=== PATIENT | female | born 1935 | race Caucasian/White ===

== ENCOUNTER → 2021-01-25 | Outpatient (CLI) | payer OTHER | END | disposition home or self-care (01) | LOC: RAH 11:25 | PROVIDERS: ATTEND Student in an Organized Health Care Education/Training Program | DX: D17.5 Benign lipomatous neoplasm of intra-abdominal organs (principal); K43.9 Ventral hernia without obstruction or gangrene | CPT/HCPCS: 76705 ==

== ENCOUNTER → 2022-02-11 | Outpatient (CLI) | payer OTHER ==
[~2022-02-11] MED LIST: KETOROLAC 30MG VIAL (30MG/ML) ONE
== END ==
LOC: RAH 10:00
PROVIDERS: ATTEND Internal Medicine
DX: R19.00 Intra-abdominal and pelvic swelling, mass and lump, unspecified site (principal); K43.9 Ventral hernia without obstruction or gangrene
CPT/HCPCS: 76705

== ENCOUNTER 2022-11-07 06:41 | Observation (INO) | payer OTHER, MEDICARE ==
[2022-10-31 11:13] LABS: BASOPHILS % (AUTO) 0.4 % (0.0-5.0); EOSINOPHILS % (AUTO) 2.2 % (0.0-8.0); HEMATOCRIT 41.7 % (36-48); MEAN CORPUSCULAR HEMOGLOBIN 28.1 pg (27.0-33.0); MEAN CORPUSCULAR HGB CONC 31.7 g/dL (32.0-36.0); MEAN CORPUSCULAR VOLUME 88.7 fL (79-99); MONOCYTES % (AUTO) 8.1 % (3.0-13.0); PLATELET COUNT (AUTO) 219 K/uL (130-400); RED CELL DISTRIBUTION WIDTH 13.2 % (11.0-15.5); WHITE BLOOD COUNT (AUTO) 6.8 K/uL (4.8-10.8)
[2022-10-31 11:22] LABS: CREATININE 0.9 mg/dL (0.5-1.5); POTASSIUM 4.4 mmol/L (3.5-5.1)
[2022-11-06 09:02] VITALS: BP 188/72
[~2022-11-07] VITALS: Ht 154.9 cm; Wt 70.3 kg
[2022-11-07] VITALS (39 sets, daily range): BP systolic 92–164; BP diastolic 34–86
[~2022-11-07 06:41] MED LIST changes: +AEC81 PO; +AMLO-257 PO; +CALC-261 PO; +CEFAZOLIN SODIUM 2 GM VIAL IVPB SCH; +CRANBERRY PO; +GLIM1TAB18 PO; -KETOROLAC 30MG VIAL (30MG/ML) ONE; +L.AC1CAP6 PO; +LOSA25TA41 PO; +METO25TA6 PO; +MV W1TAB4 PO; +OMEP20CA12 PO; +PRAV40TA3 PO; +PROPOFOL 10 MG/ML 20ML VIAL IV ONE; +VITAMIN D3 PO
[2022-11-07] MEDS ORDERED: 0.9%NACL 1000ML 1,000 ML IV ONE (07:15)
[2022-11-07] MEDS ORDERED: LIDOCAINE PF 100MG/5ML (2%) SYRINGE 5ML ONE (07:38)
[2022-11-07] MEDS ORDERED: MIDAZOLAM HCL 1 MG/ML 2ML VIAL ONE (07:39)
[2022-11-07] MEDS ORDERED: ROCURONIUM 10MG/1ML SYR 10 MG/ML ML ONE (07:39)
[2022-11-07] MEDS ORDERED: PROPOFOL 10 MG/ML 20ML VIAL IV ONE (07:39)
[2022-11-07] MEDS ORDERED: FENTANYL CITRATE PF 50 MCG/1 ML 2ML VIAL ONE ×2 (07:40→12:03)
[2022-11-07] MEDS ORDERED: HYDRALAZINE 20MG/ML VIAL ONE (09:30)
[2022-11-07] MEDS ORDERED: DEXAMETHASONE SOD PHOSPHATE 4 MG/ML 1ML VIAL ONE ×3 (10:03→10:09)
[2022-11-07] MEDS ORDERED: ONDANSETRON 4MG INJ ONE ×2 (10:04→12:20)
[2022-11-07] MEDS ORDERED: ROPIVACAINE 0.5% 5MG/ML 30ML IJ ONE (10:09)
[2022-11-07] MEDS ORDERED: NEOSTIGMINE 5MG/5ML SYR IV ONE (11:23)
[2022-11-07] MEDS ORDERED: GLYCOPYRROLATE 1 MG/5 ML SYRINGE ONE (11:23)
[2022-11-07] MEDS ORDERED: PROMETHAZINE HCL 25 MG/ML 1ML AMPULE IM ONE (12:48)
[2022-11-07] MEDS ORDERED: KETOROLAC 30MG VIAL (30MG/ML) ONE (13:45)
[2022-11-07] MEDS ORDERED: MORPHINE 2 MG SYG ONE (14:50)
[2022-11-07] MEDS ORDERED: IBUPROFEN 400 MG TABLET PO PRN (20:00)
[2022-11-07] MEDS ORDERED: ONDANSETRON 4MG INJ IVP PRN (20:30)
[2022-11-07] MEDS ORDERED: DEXTROSE 5 % AND 0.9 % NACL 1,000 ML IV SCH (20:30)
[2022-11-07] MEDS ORDERED: ASPIRIN 81 MG EC TAB PO SCH (21:00)
[2022-11-07] MEDS: AMLODIPINE 5 MG TAB PO SCH (21:07)
[2022-11-07] MEDS: METOPROLOL TARTRATE 25 MG TAB PO SCH (21:07)
[2022-11-07] MEDS ORDERED: HYDROCODONE/ACETAMINOPHEN 5/325 MG TAB PO PRN (21:30)
[2022-11-08 04:00] VITALS: BP 156/78
[2022-11-08] MEDS: TRAMADOL HCL 50 MG TABLET PO PRN ×2 (05:08→11:21)
[2022-11-08 07:10] VITALS: BP 141/61
[2022-11-08] MEDS ORDERED: ACIDOPH PO SCH (08:00)
[2022-11-08] MEDS ORDERED: LACTOBACILLUS RHAMNOSUS GG 1 EACH CAP.SPRINK PO SCH (08:00)
[2022-11-08] MEDS ORDERED: PARACASEI B LACTIS PO SCH (08:00)
[2022-11-08] MEDS ORDERED: CA 600MG+VIT D 400 UNIT TAB 1 TAB TABLET PO SCH (09:00)
[2022-11-08] MEDS ORDERED: PANTOPRAZOLE 40 MG TAB DR PO SCH (09:00)
[2022-11-08] MEDS ORDERED: IRON PO SCH (09:00)
[2022-11-08] MEDS ORDERED: [UNRECOGNIZED DRUG - OTHER] PO SCH (09:00)
[2022-11-08] MEDS ORDERED: NON-FORMULARY MEDICATION 1 EACH (Glimepiride 1 MG) PO SCH (09:00)
[2022-11-08] MEDS ORDERED: LUTEIN PO SCH (09:00)
[2022-11-08] MEDS ORDERED: GLIMEPIRIDE 2 MG TABLET PO SCH (09:00)
[2022-11-08] MEDS ORDERED: MULTIVITAMIN TABLET PO SCH (09:00)
[2022-11-08] MEDS ORDERED: LOSARTAN 25 MG TABLET PO SCH (09:00)
[2022-11-08] MEDS ORDERED: Pravastatin Sodium 40 MG PO SCH (09:00)
[2022-11-08] MEDS ORDERED: HRB PO SCH (09:00)
[2022-11-08] MEDS ORDERED: [UNRECOGNIZED DRUG - OTHER] PO SCH (09:00)
[2022-11-08] MEDS ORDERED: VITAMIN D3 PO SCH ×2 (09:00)
[2022-11-08] MEDS ORDERED: CALCIUM CARBONATE PO SCH (09:00)
[2022-11-08] MEDS ORDERED: NON-FORMULARY MEDICATION 1 EACH (Omeprazole 20 MG) PO SCH (09:00)
[2022-11-08] MEDS ORDERED: EAC PO SCH (09:00)
[2022-11-08] MEDS ORDERED: DENO60DI SQ (09:01)
[2022-11-08] MEDS: METOPROLOL TARTRATE 25 MG TAB PO SCH (09:15)
[2022-11-08] MEDS: AMLODIPINE 5 MG TAB PO SCH (09:16)
[2022-11-08 11:30] VITALS: BP 143/60
[2022-11-08] MEDS ORDERED: ROCURONIUM 10MG/1ML SYR 10 MG/ML ML ONE (12:15)
[2022-11-08 15:10] VITALS: BP 116/42
[2022-11-08] MEDS ORDERED: TRAM50TA4 PO (23:48)
== END 2022-11-08 16:30 | disposition home or self-care (01) ==
LOC: DAH 06:41 → INTOOBSV 06:42 → DAHIP 06:42 → 4BH 15:33
PROVIDERS: ADMIT Internal Medicine; ATTEND Internal Medicine
DX: K43.2 Incisional hernia without obstruction or gangrene (principal); Z20.822 Contact with and (suspected) exposure to COVID-19; I12.9 Hypertensive chronic kidney disease with stage 1 through stage 4 chronic kidney disease, or unspecified chronic kidney disease; N18.2 Chronic kidney disease, stage 2 (mild); E11.22 Type 2 diabetes mellitus with diabetic chronic kidney disease; E11.42 Type 2 diabetes mellitus with diabetic polyneuropathy; K21.00 Gastro-esophageal reflux disease with esophagitis, without bleeding; K44.9 Diaphragmatic hernia without obstruction or gangrene; K58.0 Irritable bowel syndrome with diarrhea; M81.0 Age-related osteoporosis without current pathological fracture; M19.90 Unspecified osteoarthritis, unspecified site; Z79.82 Long term (current) use of aspirin; Z79.84 Long term (current) use of oral hypoglycemic drugs; Z88.6 Allergy status to analgesic agent; Z87.891 Personal history of nicotine dependence
CPT/HCPCS: 80048; 85025; 87426; 36415; 93005; 49615; 82948 ×6; 97161; 97116; A6260; J2704 ×2; J1100 ×3; A4663; J7030 ×2; A4606; C1781; J7042; J3010 ×2; J3490; J2710; J2550; J2001; J0360; J2250; J2405 ×2; J1885; J2795; J0690; C1769 ×2; G0168; A4649; A4215; A4223; A4222; A4221; A4600; G0378 ×5